=== PATIENT | male | born 1955 | race African-American/Black ===

== ENCOUNTER 2020-05-16 11:27 | Emergency (ER) | payer MEDICARE ==
[2020-05-16] MEDS ORDERED: Acetaminophen 500 MG TAB ONE (12:09)
--- NOTE | 2020-05-16 13:23 | RAD ---
RIGHT KNEE 5 VIEWS: Date: 05/16/2020 HISTORY: Fall. FINDINGS/IMPRESSION: There is a mainly sagittal but slightly obliquely oriented fracture through the medial tibial plateau . This occurs along the central edge of the plateau. Fracture line exits along the medial cortex of t he proximal tibial shaft. POS: [facility]
== END 2020-05-16 12:55 | disposition home or self-care (01) ==
LOC: MADERS 11:27
DX: S82.141A Displaced bicondylar fracture of right tibia, initial encounter for closed fracture (principal); W01.0XXA Fall on same level from slipping, tripping and stumbling without subsequent striking against object, initial encounter

== ENCOUNTER 2022-09-12 03:22 | Emergency (ER) | payer MEDICARE, OTHER ==
[2022-09-12 04:10] LABS: Eosinophils 3 % (0-10); Lymphocytes 42 % (21-51); MDiff Complete? YES; Macrocytosis MODERATE=16-30 cells (100X) (0-5/hpf); Mean Corpuscular Hemoglobin 34.4 pg (27.0-31.0); Mean Corpuscular Volume 107.4 fl (78.0-98.0); Mean Platelet Volume 6.9 fL (7.4-10.4); Monocytes 6 % (0-10); Neutrophil 48 % (42-75); Platelet Count 207 thou/uL (130-400); RBC Distribution Width 15.1 % (11.5-14.5); White Blood Cell (WBC) Count 3.3 thou/uL (4.8-10.8)
[2022-09-12 04:18] LABS: AST (SGOT) 22 U/L (5-34); Albumin 3.5 g/dL (3.4-4.8); Alkaline Phosphatase 70 U/L (40-110); Anion Gap 13 mmol/L (10-20); BUN (Urea Nitrogen) 14 mg/dL (8.4-25.7); Bilirubin, Total 0.5 mg/dL (0.2-1.2); Calc. Creatinine Clearance 0 mL/min (70-130); Calcium 8.6 mg/dL (7.8-10.44); Carbon Dioxide 18 mmol/L (23-31); Chloride 109 mmol/L (98-107); Estimated GFR 44; Globulin 3.7 g/dL (2.4-3.5); Glucose 86 mg/dL (80-115); Potassium 4.2 mmol/L (3.5-5.1); Protein, Total 7.2 g/dL (5.8-8.1); Sodium 136 mmol/L (136-145)
[2022-09-12 04:19] LABS: ALT (SGPT) 22 U/L (8-55)
[2022-09-12] MEDS ORDERED: Aspirin Chewable 81 MG TAB ONE (08:04)
== END 2022-09-12 08:10 | disposition short-term general hospital (02) ==
LOC: MADERS 03:22
DX: T82.129A Displacement of unspecified cardiac electronic device, initial encounter (principal); I10 Essential (primary) hypertension; M10.9 Gout, unspecified; Z95.0 Presence of cardiac pacemaker; Z79.82 Long term (current) use of aspirin; Z79.01 Long term (current) use of anticoagulants; Z79.899 Other long term (current) drug therapy
CPT/HCPCS: 71045; 80053; 82553; 83880; 84484; 85025; 93005